=== PATIENT | female | born 1955 | race Caucasian/White ===

== ENCOUNTER 2016-09-21 10:04 | Day surgery (SDC) | payer BC ==
--- NOTE | ~2016-09-21 | EGD ---
EGD REPORT [facility] [address] [place]. [id number] NAME: TRUDY BANDA : [birth year] STATUS : REG [facility]#: [id number] AGE: 61 ADM/REG DATE : 09/21/16 MR#: [id number] REPORT SERV DATE: 09/21/16 DICTATED BY: BENITA PHILLIPS DATE: 09/21/16 REPORT STATUS : Draft [facility]: [facility] DATE: 09/21/16 [facility] Patient Name: Trudy Banda Date of : 1955 Attending MD: BENITA PHILLIPS, Procedure Date No Time: 09/21/2016 Procedure: Upper GI endoscopy Indications: Common bile duct dilation (acquired) seen on CT scan, Abdominal pain in the right upper quadrant, Cirrhosis rule out esophageal varices Referring MD: KRISTINE KENNEDY Medicines: Monitored Anesthesia Care Complications: No immediate complications. Estimated blood loss: None. Procedure: Pre-Anesthesia Assessment: - ASA Grade Assessment: III - A patient with severe systemic disease. After obtaining informed consent, the endoscope was passed under direct vision. Throughout the procedure, the patient's blood pressure, pulse, and oxygen saturations were monitored continuously. The GIF [id number] was introduced through the mouth, and advanced to the second part of duodenum. The procedure was aborted. The scope was not inserted. Medications were given. After obtaining informed consent, the endoscope was passed under direct vision. Throughout the procedure, the patient's blood pressure, pulse, and oxygen saturations were monitored continuously. Findings: Endoscopic Finding : The examined esophagus was endoscopically normal. There is no endoscopic evidence of varices in the entire esophagus. Moderate portal hypertensive gastropathy was found in the gastric fundus and in the gastric body. The cardia and gastric fundus were normal on retroflexion. A medium amount of food (residue) was found in the gastric body. Because of this the EUS was not performed. The examined duodenum was endoscopically normal. Impression: - Normal esophagus. - Portal hypertensive gastropathy. - A medium amount of food (residue) in the stomach. - Normal examined duodenum. Recommendation: - Return to previous diet. EGD REPORT [address] [address] NAME: TRUDY BANDA : [birth year] STATUS : REG [facility] PAT#: [id number] AGE: 61 ADM/REG DATE : 09/21/16 MR#: [id number] REPORT SERV DATE: 09/21/16 DICTATED BY: BENITA PHILLIPS DATE: 09/21/16 REPORT STATUS : Draft TRANSCRIBED BY: [employer] DATE: 09/21/16 - Continue present medications. - Given her thrombocytopenia, would consider MRCP for further evaluation of her dilated bile duct. - Return to referring physician. Repeat plts in one week. Procedure Code(s): --- Professional --- 43790, Esophagogastroduodenoscopy, flexible, transoral; diagnostic, including collection of specimen(s) by brushing or washing, when performed (separate procedure) Diagnosis Code(s): --- Professional --- K76.6, Portal hypertension K31.89, Other diseases of stomach and duodenum K83.8, Other specified diseases of biliary tract R10.11, Right upper quadrant pain K74.60, Unspecified cirrhosis of liver CPT copyright 2013 [employer]. All rights reserved. The codes documented in this report are preliminary and upon bridal stylist sales consultant review may be revised to meet current compliance requirements. BENITA PHILLIPS, 09/21/2016 11:38 AM Number of Addenda: 0 Note Initiated On: 09/21/2016 11:22 AM Scope Withdrawal Time 0 hours 0 minutes 0 seconds [id number] [place] [id number]
[~2016-09-21 10:04] MED LIST: ASAB PO; C5 PO; RIFADIN150 MG PO; ULTRAM50 PO; XANAX1 MG PO
[2016-09-21 10:33] LABS: BASOPHILS 0.3 %; BASOPHILS ABSOLUTE 0.01 10/3/uL (0.0-0.16); EOSINOPHILS 3.5 %; EOSINOPHILS ABSOLUTE 0.11 10/3/uL (0.0-0.53); HEMOGLOBIN 10.3 g/dL (12.0-16.0); IMMATURE GRANULOCYTES 0.3 %; IMMATURE GRANULOCYTES ABSOLUTE 0.01 10/3/uL (0.0-0.11); LYMPHOCYTES 43.2 %; LYMPHOCYTES ABSOLUTE 1.34 10/3/uL (0.67-4.30); MEAN CORPUS HGB CONC 34.1 g/dL (32.0-36.0); MEAN CORPUSCULAR HEMOGLOB 34.7 pg (26.0-34.0); MEAN PLATELET VOLUME 12.2 fL (9.2-13.0); MONOCYTES 7.4 %; MONOCYTES ABSOLUTE 0.23 10/3/uL (0.21-1.20); NEUTROPHILS 45.3 %; RBC DISTRIBUTION WIDTH 14.4 % (12.0-16.0); RED CELL COUNT 2.97 10/6/uL (4.0-5.6); WHITE BLOOD CELLS 3.1 10/3/uL (4.5-10.5)
[2016-09-21 10:36] LABS: HEMATOCRIT 30.2 % (36.0-48.0); MEAN CORPUSCULAR VOLUME 101.7 fL (80-100); PLATELET COUNT 26 10/3/uL (150-400)
[2016-09-21 10:37] LABS: MANUAL DIFF NO %
[2016-09-21 10:51] LABS: ALKALINE PHOSPHATASE 108 U/L (45-117); BUN (BLOOD UREA NITROGEN) 5 MG/DL (6-23); CALCIUM, SERUM 7.9 MG/DL (8.5-10.4); CHLORIDE, SERUM 110 MMOL/L (96-112); CO2 (CARBON DIOXIDE) 23 MMOL/L (24-34); CREATININE 0.71 MG/DL (0.55-1.02); GFR AFRICAN AMERICAN 105 ML/MIN (>=60); GFR NON AFRICAN AMERICAN 91 ML/MIN (>=60); MACROCYTES 1+ (5-10/OIF) (0-5/OIF); POTASSIUM, SERUM 3.5 MMOL/L (3.5-5.3); SGOT(AST) 161 U/L (5-40); SGPT(ALT) 90 U/L (5-65); SODIUM, SERUM 141 MMOL/L (135-148)
[2016-09-21 10:52] LABS: ALBUMIN 2.5 G/DL (3.5-5.0); DIRECT BILIRUBIN 0.9 MG/DL (0.0-0.4); GLUCOSE, SERUM 113 MG/DL (60-99); INDIRECT BILIRUBIN(NOT ORDER) 1.1 MG/DL (0.1-0.9); TOTAL PROTEIN 6.2 G/DL (6.0-8.5)
== END 2016-09-21 23:59 | disposition home or self-care (01) ==
LOC: DMU 10:04
PROVIDERS: Anesthesiology; Internal Medicine Gastroenterology
PROC: 0DJ08ZZ Inspection of Upper Intestinal Tract, Via Natural or Artificial Opening Endoscopic (ICD-10-PCS; principal; 2016-09-21 13:00)
DX: K76.6 Portal hypertension (principal); K31.89 Other diseases of stomach and duodenum; K83.8 Other specified diseases of biliary tract; I73.9 Peripheral vascular disease, unspecified; I10 Essential (primary) hypertension; I25.10 Atherosclerotic heart disease of native coronary artery without angina pectoris; R10.11 Right upper quadrant pain; K74.60 Unspecified cirrhosis of liver; E78.5 Hyperlipidemia, unspecified; Z95.5 Presence of coronary angioplasty implant and graft; Z90.89 Acquired absence of other organs; Z88.0 Allergy status to penicillin; Z88.1 Allergy status to other antibiotic agents; Z88.2 Allergy status to sulfonamides; Z88.8 Allergy status to other drugs, medicaments and biological substances; Z79.82 Long term (current) use of aspirin; Z79.891 Long term (current) use of opiate analgesic
CPT/HCPCS: 80048; 80076; 85025; 93005; J2370